=== PATIENT | female | born 1975 ===

== ENCOUNTER 2021-04-12 05:37 | Outpatient (CLI) | payer OTHER ==
[~2021-04-12] VITALS: Ht 114.8 cm; Wt 62.5 kg
[2021-04-12] MEDS ORDERED: METF-397 PO (14:44)
[2021-04-12] MEDS ORDERED: ATOR20TA66 PO (14:44)
== END 2021-04-12 14:54 | disposition home or self-care (01) ==
LOC: PREOP 05:37
PROVIDERS: ATTEND Obstetrics & Gynecology
DX: Z01.818 Encounter for other preprocedural examination (principal); N84.0 Polyp of corpus uteri

== ENCOUNTER 2021-04-19 09:14 | Day surgery (SDC) | payer OTHER ==
[2021-04-19] VITALS (11 sets, daily range): BP systolic 87–135; BP diastolic 42–75
[~2021-04-19] VITALS: Ht 114.8 cm; Wt 62.5 kg
[~2021-04-19 09:14] MED LIST: ATOR20TA66 PO; METF-397 PO
[2021-04-19] MEDS ORDERED: ceFAZolin 2 GM IV Premixed 50 ML IV ONE (09:30)
[2021-04-19] MEDS ORDERED: LACTATED RINGERS 1,000 ML IV PRN (09:30)
--- NOTE | 2021-04-19 09:46 | Progress Note-Pre Operative ---
Pre-Operative Progress Note H&P Reviewed The H&P was reviewed, patient examined and no changes noted. Date Seen by Provider: Apr 19, 2021 Time Seen by Provider: 09:45 Date H&P Reviewed: Apr 19, 2021 Time H&P Reviewed: 09:40 Pre-Operative Diagnosis: endometrial polyp, ANI pap smear. JASE SOLIS DO Apr 19, 2021 09:46
[2021-04-19] MEDS ORDERED: SEVOFLURANE (ULTANE) 15 ML INHAL SOLN ONE ×4 (10:09→10:48)
[2021-04-19] MEDS ORDERED: LIDOCAINE PF 2% 5 ML (XYLOCAINE) VIAL ONE (10:09)
[2021-04-19] MEDS ORDERED: fentaNYL INJ 100 MCG/2 ML AMP ONE (10:09)
[2021-04-19] MEDS ORDERED: proPOfol 200 MG/20 ML (DIPRIVAN) VIAL IV ONE (10:09)
[2021-04-19] MEDS ORDERED: MIDAZOLAM 2 MG/2 ML (VERSED) VIAL ONE (10:10)
[2021-04-19 10:25] LABS: BASOPHILS % (AUTO) 1 % (0-10); EOSINOPHILS # (AUTO) 0.1 10^3/uL (0.0-0.3); EOSINOPHILS % (AUTO) 1 % (0-10); HEMATOCRIT 36 % (35-52); HEMOGLOBIN 11.3 g/dL (11.5-16.0); LYMPHOCYTES # (AUTO) 2.3 10^3/uL (1.0-4.0); LYMPHOCYTES % (AUTO) 36 % (12-44); MEAN CORPUSCULAR HEMOGLOBIN 28 pg (25-34); MEAN CORPUSCULAR HGB CONC 32 g/dL (32-36); MEAN CORPUSCULAR VOLUME 87 fL (80-99); MEAN PLATELET VOLUME 11.4 fL (9.0-12.2); MONOCYTES # (AUTO) 0.4 10^3/uL (0.0-1.0); MONOCYTES % (AUTO) 6 % (0-12); NEUTROPHILS # (AUTO) 3.7 10^3/uL (1.8-7.8); NEUTROPHILS % (AUTO) 57 % (42-75); PLATELET COUNT 215 10^3/uL (130-400); WHITE BLOOD COUNT 6.5 10^3/uL (4.3-11.0)
[2021-04-19] MEDS ORDERED: ONDANSETRON 4 MG/2 ML (SDV) Z0FRAN ONE (10:48)
--- NOTE | 2021-04-19 11:14 | Operative Report ---
Operative Report Date of Procedure/Surgery Apr 19, 2021 Surgeon (s) JASE SOLIS DO Low Pressure Kettle Operator (s): NA Post-Operative Diagnosis ANI pap smear, endometrial polyp Procedure Performed Dilation and curettage Description of Procedure Anesthesia Type: General Estimated blood loss (mL): minimal Specimen(s) collected/removed endometrial curettings Description of the Procedure with informed consent the patient was taken to the operating room where general anesthesia was found to be adequate. She was then prepped and draped in the usual sterile fashion in the dorsolithotomy position. The bladder was drained of clear yellow urine with a straight catheter. A speculum was placed in the vagina and the cervix grasped with a tenaculum. Or note she has 2-3 + uterine descensus and 2+ cystocele. The cervix was gently dilated with Nelson dilators. I then did a sharp curette until a gritty texture was heard. There was a moderate amount of proliferative appearing tissue noted. This is sent for pathology. The instruments were now removed and there was a small amount of bleeding noted from the cervix. Pressure was applied with a ring forceps. The patient was now awakened and taken to recovery in stable condition. Sponge, lap and instrument counts were correct times two. Findings of the Procedure moderate amounts of endometrial tissue noted Allergies and Home Medications Allergies Coded Allergies: No Allergy Information Available (Unverified , 09/25/16) Home Medications Atorvastatin Calcium 20 Mg Tablet, 20 MG PO DAILY, (Reported) Metformin HCl 500 Mg Tablet, 500 MG PO BID, (Reported) Patient Home Medication List Home Medication List Reviewed: Yes JASE SOLIS DO Apr 19, 2021 11:14
[2021-04-19] MEDS ORDERED: ACETAMINOPHEN 500 MG TAB (TYLENOL) PO PRN (11:15)
[2021-04-19] MEDS ORDERED: IBUPROFEN 600 MG (MOTRIN) TAB PO PRN (11:15)
[2021-04-19] MEDS ORDERED: KETOROLAC 30 MG/ML VIAL IVP ONE (11:15)
[2021-04-19] MEDS ORDERED: ACET-93 PO (11:16)
[2021-04-19] MEDS ORDERED: IBUP-844 PO (11:16)
[2021-04-19] MEDS ORDERED: OXC5T PO (11:16)
--- NOTE | 2021-04-19 11:17 | Discharge Inst-Women's Service ---
Discharge Inst-Women's Serv Depart Medication/Instructions New, Converted or Re-Newed RX: RX on Chart Final Diagnosis abnormal pap smear endometrial polyp Problems Reviewed?: Yes Consults/Follow Up Additional Follow Up: Yes ([address] Solis) Activity Activity: Activity as Tolerated Driving Instructions: No Driving for 24 Hours NO SMOKING: NO SMOKING Nothing Inside Vagina: No Douching, No [place], No Tampons Diet Discharge Diet: No Restrictions Symptoms to Report to : Bleeding Excessive, Pain Increased, Fever Over 101 Degrees F, Vaginal Bleeding Increase, Cramps in Feet or Legs, Vaginal Discharge Foul For Any Problems or Questions: Contact Your Physician JASE SOLIS DO Apr 19, 2021 11:17
--- NOTE | 2021-04-19 14:39 | Anesthesia-General Post-Op ---
General Patient Condition Mental Status/LOC: Same as Preop Cardiovascular: Satisfactory Nausea/Vomiting: Absent Respiratory: Satisfactory Pain: Controlled Complications: Absent Post Op Complications Complications None Follow Up Care/Instructions Patient Instructions None needed. Anesthesia/Patient Condition Patient Condition Patient is doing well, no complaints, stable vital signs, no apparent adverse anesthesia problems. No complications reported per nursing. ULISES ADAMES CRNA Apr 19, 2021 14:39
== END 2021-04-19 13:25 | disposition home or self-care (01) ==
LOC: SDC 09:14
PROVIDERS: ATTEND Obstetrics & Gynecology
DX: N84.0 Polyp of corpus uteri (principal); E11.9 Type 2 diabetes mellitus without complications; E78.5 Hyperlipidemia, unspecified; Z79.899 Other long term (current) drug therapy; Z79.84 Long term (current) use of oral hypoglycemic drugs
CPT/HCPCS: 36415; 82947; 84703; 85025; 87081; 88305